=== PATIENT | male | born 1940 | race Caucasian/White ===

== ENCOUNTER → 2017-06-19 | Outpatient (CLI) | payer OTHER ==
[~2017-06-19] MED LIST: ASCO500T16 PO; DVN80125 PO; MULT-506 PO; [UNRECOGNIZED DRUG - OTHER] PO
[2017-06-19 14:03] VITALS: BP 108/66; PULSE 70; TEMP 37.1; O2SAT 96
--- NOTE | 2017-06-19 15:17 | Radiation Oncology Follow-Up ---
Radiation Oncology Follow-Up Date of Visit Jun 19, 2017. Reason For Visit Annual follow-up Radiation Completion Date finished 11-08-2013 Diagnosis (1) Prostate cancer Status: Resolved Onset Date: 04/12/2011 Permanent Comment: Rising PSA, presenting PSA 7.4 Status post ultrasound-guided biopsy 04/12/2011 revealing adenocarcinoma Petra grade 4+4, biopsy stage TII Status post robotic prostatectomy 11/01/2011 Pathologic stage [id number] Rising PSA to 0.18 1 injection of Lupron 30 mg September 2013 Status post completion of salvage radiation 11/08/2013 received 7000 cGy Last Edited By: Liz Head on Jun 12, 2016 14:31 Interim History He is been doing well from urinary standpoint. His AUA today was 3. Last year it was 4. He completed a prostate cancer index composite for clinical practice and gave a score of 0 of 12 and urinary incontinence symptoms. He gave a score of 2 of 12 and urinary irritation symptoms. He gave a score of 0 of 12 and bowel symptoms. He gave a score of 2 of 12 and sexual symptoms. He gave a score of one of 12 and hormonal vitality symptoms. His total was 5 of 60. He had a PSA 12/02/2016. This was less than 0.13. He had questioned the use of testosterone to improve endurance and energy levels. I've asked him to review that question with Dr. Cormier. He is aware that testosterone is avoided in patients who have a history of prostate cancer. Allergies Coded Allergies: Ciprofloxacin (Verified Adverse Reaction, Unknown, DIARRHEA, 10/21/11) Home Medications Scheduled Ascorbic Acid (Ascorbic Acid), 500 MG PO DAILY Multivitamin (Multivitamin), 1 TAB PO DAILY [wobemzyme], 2 TAB PO BID Review of Systems Gastrointestinal: Symptoms: WNL Oral: Symptoms: No Problems Respiratory: Symptoms: WNL Urinary: Symptoms: WNL Skin: Symptoms: No Problems Other Skin Symptoms: " skin is wrinkled " Physical Exam Vital Signs Date Time Temp Pulse Resp B/P (MAP) Pulse Ox O2 Delivery O2 Flow Rate FiO2 06/19/17 14:03 37.1 70 18 108/66 96 Pain: Side: Bilateral Patient Pain Scale: 0 - 10 Initial Pain Intensity: 0.0 General Appearance: no apparent distress Eyes: normal inspection, EOMI ENT: normal ENT inspection, hearing grossly normal Neck: no adenopathy, thyroid normal Respiratory/Chest: lungs clear, no respiratory distress, no accessory muscle use Cardiovascular: regular rate, rhythm, no gallop, no murmur Anal / Rectum: Refused rectal exam. Laboratory Studies Test 06/19/17 14:33 Assessment & Plan Plan: PSA was drawn today. He'll be notified as to the results. Continue regular follow-up with Dr. Cormier. He'll be seeing him in December 2017. We ask him to return to our office in 1 year. He may call if he has any questions or concerns in the interim. Total Time In Follow-Up I spent 20 minutes speaking to the patient and performing examination. I spent 15 minutes reviewing information and complaining this note. Copy To Shaheen Cormier MD, Urology; Chad Jackman D.O.
== END | disposition home or self-care (01) ==
LOC: C.ONC 13:56
PROVIDERS: ATTEND Physician Assistant Medical
DX: Z08 Encounter for follow-up examination after completed treatment for malignant neoplasm (principal); Z92.3 Personal history of irradiation; Z85.46 Personal history of malignant neoplasm of prostate

== ENCOUNTER 2017-11-21 16:28 | Emergency (ER) | payer OTHER ==
[~2017-11-21] VITALS: Ht 167.6 cm; Wt 72.0 kg
[~2017-11-21 16:28] MED LIST changes: -DVN80125 PO
[2017-11-21 16:29] VITALS: TEMP 36.5; Ht 167.6 cm; Wt 72.0 kg
[2017-11-21] MEDS ORDERED: [UNRECOGNIZED DRUG - OTHER] PO (16:42)
--- NOTE | 2017-11-21 17:48 | DIAGNOSTIC IMAGING REPORT ---
L-SPINE MIN 4 VIEWS ROUTINE HISTORY: 76 years-old Male R hip pain acute right-sided hip pain COMPARISON: Pelvis and right hip radiographs of same day TECHNIQUE: 5 views of the lumbar spine FINDINGS: There are 5 lumbar type vertebral segments present. No spondylolysis or spondylolisthesis. Mild intervertebral disc space narrowing noted at the T12-L1, L1-L2 and L5-S1 levels. Multilevel facet arthropathy. No acute fracture or subluxation. Bones appear mildly demineralized. Atherosclerosis of the aorta with suggested aneurysmal dilation. IMPRESSION: 1. No acute fracture or subluxation of the lumbar spine. 2. Atherosclerosis with suggested aneurysmal dilation of the abdominal aorta. 3. Degenerative changes as above. The above report was generated using voice recognition software. It may contain grammatical, syntax or spelling errors. Electronically signed by: Eugene Lunsford M.D. 11/21/2017 5:46 PM Dictated Date/Time: 11/21/2017 5:44 PM
--- NOTE | 2017-11-21 17:49 | DIAGNOSTIC IMAGING REPORT ---
R PELVIS/UNILATERAL HIP 2-3VIEWS HISTORY: 76 years-old Male R hip pain acute right hip pain COMPARISON: Lumbar spine radiographs of same day TECHNIQUE: AP view of the pelvis with 2 views of the right hip FINDINGS: No pelvic ring fracture identified. Degenerative changes are seen within the bilateral SI joints and lower lumbar spine. Mild degenerative changes of the bilateral femoral acetabular joints. There is no acute fracture or subluxation identified. Marginal spurring is noted about the right greater trochanter. IMPRESSION: No acute fracture or subluxation. The above report was generated using voice recognition software. It may contain grammatical, syntax or spelling errors. Electronically signed by: Eugene Lunsford M.D. 11/21/2017 5:48 PM Dictated Date/Time: 11/21/2017 5:46 PM
--- NOTE | 2017-11-21 17:54 | EMERGENCY ROOM VISIT NOTE ---
History First contact with patient: 16:41 Chief Complaint: BACK INJURY Stated Complaint: BACK INJURY History of Present Illness The patient is a 76 year old male who presents to the Emergency Room via private vehicle accompanied by with complaints of "back injury". The patient states that he has had right low back pain near the SI joint for many years. He usually follows with a chiropractor and adjustment is normally all he needs. He states that this past Friday he was seen by the chiropractor but the pain has not improved. It is progressively worsening. He notes that it is worse at night. It is alleviated after bowel movements, and by sitting. It is worse with standing. He notes the pain is a 3/10 now but at times will be at 12 /10. He denies any trauma or injury to the area. He states that there is no radiation, numbness, tingling, weakness, urinary symptoms, incontinence, blood in the stools. He does note a history of troubles with his right hip. He has been taking ibuprofen and trying heat. He notes that ice hurts the area. Review of Systems A complete 10-point Review of Systems was discussed with the patient, with pertinent positives and negatives listed in the History of Present Illness. All remaining Review of Systems questions can be considered negative unless otherwise specified. Past Medical/Surgical History Medical Problems: (1) Prostate cancer Family History Noncontributory. Social History Smoking Status: Current Every Day Smoker Patient lives locally. Current/Historical Medications Scheduled Ascorbic Acid (Ascorbic Acid), 500 MG PO DAILY Multivitamin (Multivitamin), 1 TAB PO DAILY [Wobemzym], 2 TABS PO TID Scheduled PRN Hydrocodone/Acetaminophen 5MG/325MG (Sparks 5MG/325MG), 1-2 TABLET PO Q6 PRN for Pain Physical Exam Vital Signs Date Time Temp Pulse Resp B/P (MAP) Pulse Ox O2 Delivery O2 Flow Rate FiO2 11/21/17 20:50 58 16 157/91 95 Room Air 11/21/17 19:55 61 16 163/92 94 Room Air 11/21/17 18:38 59 16 137/85 96 Room Air 11/21/17 16:29 36.5 70 20 156/92 96 Room Air Physical Exam VITAL SIGNS - Vital signs and nursing notes were reviewed. Stable. Hypertensive. GENERAL -76-year-old male appearing his stated age who is in no acute distress. Communicates well with provider and answers questions appropriately. SKIN - Without rashes. No petechial rashes. HEAD - NC/AT. EYES - Sclera anicteric. ABDOMEN - Abdominal contour normal without pulsations or visible masses. No tenderness, palpable masses, hepatosplenomegaly, or ascites noted. EXTREMITIES - No clubbing or peripheral cyanosis. No pretibial edema present. No reproducible tenderness at the SI joint. +5/5 strength noted in UE/LE bilaterally. Medical Decision & Procedures ER Provider Diagnostic Interpretation: L-SPINE MIN 4 VIEWS ROUTINE HISTORY: 76 years-old Male R hip pain acute right-sided hip pain COMPARISON: Pelvis and right hip radiographs of same day TECHNIQUE: 5 views of the lumbar spine FINDINGS: There are 5 lumbar type vertebral segments present. No spondylolysis or spondylolisthesis. Mild intervertebral disc space narrowing noted at the T12-L1, L1-L2 and L5-S1 levels. Multilevel facet arthropathy. No acute fracture or subluxation. Bones appear mildly demineralized. Atherosclerosis of the aorta with suggested aneurysmal dilation. IMPRESSION: 1. No acute fracture or subluxation of the lumbar spine. 2. Atherosclerosis with suggested aneurysmal dilation of the abdominal aorta. 3. Degenerative changes as above. The above report was generated using voice recognition software. It may contain grammatical, syntax or spelling errors. Electronically signed by: Eugene Lunsford M.D. 11/21/2017 5:46 PM Dictated Date/Time: 11/21/2017 5:44 PM R PELVIS/UNILATERAL HIP 2-3VIEWS HISTORY: 76 years-old Male R hip pain acute right hip pain COMPARISON: Lumbar spine radiographs of same day TECHNIQUE: AP view of the pelvis with 2 views of the right hip FINDINGS: No pelvic ring fracture identified. Degenerative changes are seen within the bilateral SI joints and lower lumbar spine. Mild degenerative changes of the bilateral femoral acetabular joints. There is no acute fracture or subluxation identified. Marginal spurring is noted about the right greater trochanter. IMPRESSION: No acute fracture or subluxation. The above report was generated using voice recognition software. It may contain grammatical, syntax or spelling errors. Electronically signed by: Eugene Lunsford M.D. 11/21/2017 5:48 PM Dictated Date/Time: 11/21/2017 5:46 PM [~ rep ct add3]] ANGIO ABD/PELVIS WITH CONTRAST CLINICAL HISTORY: 76 years-old Male presents with acute right-sided hip pain. Aneurysm seen on comparison lumbar spine radiographs. COMPARISON STUDY: Lumbar spine radiographs of same day TECHNIQUE: Following the IV administration of 116 cc of Optiray 320, CT angiogram of the abdomen and pelvis was performed from the lung bases the proximal femora. Images are reviewed in the axial, sagittal, and coronal planes. 3-D MIPS images are created and assessed. IV contrast was administered without complication. A dose lowering technique was utilized adhering to the principles of ALARA. CT DOSE: 332.73 mGy.cm FINDINGS: CTA: Imaged inferior cardiac chambers are within the upper limits of normal in size. There is fusiform aneurysmal dilation of the infrarenal abdominal aorta which appears bilobed measuring up to 4.7 x 4.8 cm for a craniocaudal length of 8.6 cm. Proximal portion of the aneurysm measures up to 3.5 x 3.6 cm. The right common iliac artery is dilated measuring 1.8 cm. The left common iliac artery is also dilated measuring 1.8 cm. No aortic dissection. There is a focal area of moderate luminal narrowing involving the proximal right common iliac artery nicely seen on image 24 series 300 secondary to extensive atherosclerotic plaquing. The common, external iliac arteries are patent. The visualized common and superficial femoral arteries are also patent. Atherosclerotic plaquing the origin of the renal arteries is noted without high-grade stenosis. Celiac trunk, superior and inferior mesenteric arteries are patent. CT ABDOMEN/PELVIS: Mild dependent subsegmental bibasilar atelectasis. No pneumatosis or pneumoperitoneum identified. The liver, spleen, gallbladder and adrenal glands are within normal limits. Mild to moderate generalized pancreatic atrophy. Nonspecific bilateral perinephric stranding. Low attenuating 1.4 x 1.4 cm lesion of the interpolar right kidney suggests cyst with 2.8 x 2.1 cm lesion of the superior pole right kidney also suggesting cyst. No renal calculi or hydronephrosis identified. The ureters and urinary bladder are within normal limits. No bulky adenopathy identified. There is no bowel obstruction or focal bowel wall thickening identified. Mild sigmoid colon diverticulosis without CT evidence of acute diverticulitis. No ascites or inflammatory changes identified. Soft tissues are unremarkable. No acute fracture or subluxation. Moderate facet arthrosis of the lower lumbar spine with mild degenerative changes of the bilateral hips. IMPRESSION: 1. Bilobed fusiform aneurysmal dilation of the infrarenal abdominal aorta measures up to 4.7 x 4.8 cm. Additionally, there is dilation of the bilateral common iliac arteries measuring up to 1.8 cm with extensive atherosclerotic plaquing. 2. Moderate narrowing involves the proximal aspect of the right common iliac artery secondary to atherosclerotic plaquing. No dissection, proximal vessel occlusion or additional significant luminal narrowing identified. 3. No acute intra-abdominal or intrapelvic abnormality identified. 4. Mild sigmoid colon diverticulosis without diverticulitis. The above report was generated using voice recognition software. It may contain grammatical, syntax or spelling errors. Electronically signed by: Eugene Lunsford M.D. 11/21/2017 7:30 PM Dictated Date/Time: 11/21/2017 7:15 PM Laboratory Results 11/21/17 18:20 Red Blood Count 4.63, Mean Corpuscular Volume 91.6, Mean Corpuscular Hemoglobin 32.4, Mean Corpuscular Hemoglobin Concent 35.4, Mean Platelet Volume 9.4, Neutrophils (%) (Auto) 62.9, Lymphocytes (%) (Auto) 25.1, Monocytes (%) (Auto) 7.7, Eosinophils (%) (Auto) 3.4, Basophils (%) (Auto) 0.7, Neutrophils # (Auto) 5.20, Lymphocytes # (Auto) 2.08, Monocytes # (Auto) 0.64, Eosinophils # (Auto) 0.28, Basophils # (Auto) 0.06 11/21/17 18:20 Test 11/21/17 18:20 11/21/17 18:24 White Blood Count 8.28 K/uL (4.8-10.8) Red Blood Count 4.63 M/uL (4.7-6.1) Hemoglobin 15.0 g/dL (14.0-18.0) Hematocrit 42.4 % (42-52) Mean Corpuscular Volume 91.6 fL (80-100) Mean Corpuscular Hemoglobin 32.4 pg (25-34) Mean Corpuscular Hemoglobin Concent 35.4 g/dl (32-36) Platelet Count 245 K/uL (130-400) Mean Platelet Volume 9.4 fL (7.4-10.4) Neutrophils (%) (Auto) 62.9 % Lymphocytes (%) (Auto) 25.1 % Monocytes (%) (Auto) 7.7 % Eosinophils (%) (Auto) 3.4 % Basophils (%) (Auto) 0.7 % Neutrophils # (Auto) 5.20 K/uL (1.4-6.5) Lymphocytes # (Auto) 2.08 K/uL (1.2-3.4) Monocytes # (Auto) 0.64 K/uL (0.11-0.59) Eosinophils # (Auto) 0.28 K/uL (0-0.5) Basophils # (Auto) 0.06 K/uL (0-0.2) RDW Standard Deviation 44.0 fL (36.4-46.3) RDW Coefficient of Variation 13.2 % (11.5-14.5) Immature Granulocyte % (Auto) 0.2 % Immature Granulocyte # (Auto) 0.02 K/uL (0.00-0.02) Prothrombin Time 10.7 SECONDS (9.0-12.0) Prothromb Time International Ratio 1.0 (0.9-1.1) Activated Partial Thromboplast Time 26.6 SECONDS (21.0-31.0) Partial Thromboplastin Ratio 1.0 Est Creatinine Clear Calc Drug Dose 65.9 ml/min Estimated GFR () 97.6 Estimated GFR (Non- 84.2 BUN/Creatinine Ratio 21.1 (10-20) Calcium Level 9.3 mg/dl (8.5-10.1) Total Bilirubin 0.6 mg/dl (0.2-1) Aspartate Amino Transf (AST/SGOT) 14 U/L (15-37) Alanine Aminotransferase (ALT/SGPT) 18 U/L (12-78) Alkaline Phosphatase 79 U/L (45-117) Total Protein 7.9 gm/dl (6.4-8.2) Albumin 4.2 gm/dl (3.4-5.0) Globulin 3.7 gm/dl (2.5-4.0) Albumin/Globulin Ratio 1.1 (0.9-2) Bedside Hemoglobin 14.3 g/dl (14.0-18.0) Bedside Hematocrit 42 % (42-52) Bedside Sodium 142 mEq/L (135-144) Bedside Potassium 4.2 mEq/L (3.3-5.0) Bedside Chloride 103 mEq/L (101-112) Bedside Total CO2 27 mEq/l (24-31) Anion Gap 17.0 mmol/L (16-25) Bedside Blood Urea Nitrogen 18 mg/dl (7-18) Bedside Creatinine 0.9 mg/dl (0.6-1.3) Bedside Glucose (other) 85 mg/dl (70-99) Bedside Ionized Calcium (Lucy) 1.20 mmol/l (1.12-1.32) Medications Administered Medications (Trade) Dose Ordered Sig/Won Route Start Time Stop Time Status Last Admin Dose Admin Acetaminophen/ Hydrocodone Bitart (Sparks 5/325mg Home Pack) 1 homepack UD STAT PO 11/21/17 20:15 11/21/17 20:16 DC 11/21/17 20:15 1 HOMEPACK Medical Decision Patient was seen and evaluated as above. He presents to us today with low back pain. He is nontoxic on exam. He is not hypotensive. There is no pulsatile abdominal mass. Plain films were obtained. There is concern for potential aneurysmal finding secondary to the plaque formation seen on radiograph. CTA was obtained. There is an aneurysm. I discussed the case with the attending physician, and subsequently the on-call vascular surgeon, Dr. Rendon at 7:50 PM. He felt that the pain the patient is experiencing does not appear to be from the aneurysm. He'll be happy to see the patient in the outpatient setting. I provided the patient his contact information. It is likely the patient is experiencing pain in his SI joint from musculoskeletal etiologies, and that coincidentally we happened to find the aneurysm rather than his pain be caused by the aneurysm. X-ray regarding the hip and back are as above as well. There is no fracture or dislocation. There is no concern leukocytosis or concerning anemia. Coags normal. Metabolic panel reveals no evidence of kidney or liver failure. He'll be given Sparks for pain for the SI joint. PDMP clear. He is to call his family doctor first thing Friday as well as a vascular surgeon to schedule follow up. He is to return with worsening. He is felt stable for outpatient management. He was educated upon management, educated upon worrisome symptoms which to return, had questions answered prior to discharge, and was discharged home in good condition. He is to follow with family doctor regarding his elevated blood pressure today here as well. Medication list reviewed. In evaluation and treatment of this patient the following differential diagnoses were entertained: Fracture, dislocation, AAA, among others. Impression Primary Impression: SI (sacroiliac) joint inflammation Additional Impression: AAA (abdominal aortic aneurysm) without rupture Departure Information Dispostion Home / Self-Care Condition GOOD Prescriptions Hydrocodone/Acetaminophen 5MG/325MG (Sparks 5MG/325MG) Tab 1-2 TABLET PO Q6 Y for Pain, #15 TAB For Initial Treatment Prov: Enzo Martinez PA-C 11/21/17 Referrals Chad Jackman D.O. (PCP) Renato Rendon M.D. Patient Instructions [facility] Additional Instructions You have been treated in the Emergency Department for Back Pain. You have been prescribed NORCO to be used for pain control. This is a narcotic medication. You cannot drive or consume alcohol while on this medicine. This medicine should only be used for pain that cannot be controlled with over-the- counter pain medicines. For pain control, you can use the following [id number] medicines: - Regular strength (325mg/tab) Tylenol (acetaminophen) 2 tabs every 4-6 hours as needed. Do not exceed 12 tablets in a 24 hour period. Avoid taking more than 3 grams (3000 mg) of Tylenol per day. This includes any other sources of acetaminophen you may take on a regular basis. PLEASE DO NOT TAKE THE NORCO WITH THE TYLENOL - Regular strength (200 mg/tab) Advil (ibuprofen) 1-2 tabs every 4-6 hours as needed. Do not exceed a dose of 3200 mg per day. If this is an acute injury, ice can be applied to the area of pain for the first 3 days to help decrease pain and inflammation. After the first 3 days, a heating pad can be used over the area for continued soothing relief. You should schedule a follow-up appointment in 2-3 days with your Primary Care Provider for further evaluation and treatment of your back pain. Please follow up with Dr. Rendon for the abdominal aneurysm. Please return with ANY worsening symptoms Return to the Emergency Department if your current symptoms worsen despite treatment course outlined above, or if you develop any of the following symptoms : intractable pain despite aforementioned treatment course, loss of control of your bowel or bladder, numbness or tingling in your groin, or development of a fever. Problem Qualifiers
--- NOTE | 2017-11-21 18:03 | EMERGENCY ROOM VISIT NOTE ---
ED Visit Note First contact with patient: 16:41 This Patient was discussed with the physician Saw Tailer, Enzo Martinez PA-C. The pertinent historical and physical exam findings were confirmed. I agree with the studies ordered and with the interpretations of these studies. I agree with the disposition and care plan.
[2017-11-21] MEDS ORDERED: OPTIRAY 320 IV PRN (18:15)
[2017-11-21 18:32] LABS: BASO % 0.7 %; BASO ABS # 0.06 K/uL (0-0.2); EOS % 3.4 %; EOS ABS # 0.28 K/uL (0-0.5); HEMATOCRIT 42.4 % (42-52); IG# 0.02 K/uL (0.00-0.02); LYMPH % 25.1 %; LYMPH ABS # 2.08 K/uL (1.2-3.4); MEAN CELL VOLUME 91.6 fL (80-100); MEAN CORPUSCULAR HEMOGLOBIN 32.4 pg (25-34); MEAN CORPUSCULAR HGB CONC 35.4 g/dl (32-36); MEAN PLATELET VOLUME 9.4 fL (7.4-10.4); MONO % 7.7 %; MONO ABS # 0.64 K/uL (0.11-0.59); NEUT % 62.9 %; PLATELET COUNT 245 K/uL (130-400); RED CELL DISTRIBUTION WIDTH CV 13.2 % (11.5-14.5); WHITE BLOOD COUNT 8.28 K/uL (4.8-10.8)
[2017-11-21 18:38] LABS: ISTAT CREATININE 0.9 mg/dl (0.6-1.3); ISTAT IONIZED CALCIUM 1.2 mmol/l (1.12-1.32); ISTAT POTASSIUM 4.2 mEq/L (3.3-5.0)
[2017-11-21 18:41] LABS: PTT PATIENT 26.6 SECONDS (21.0-31.0)
[2017-11-21 18:48] LABS: ALBUMIN 4.2 gm/dl (3.4-5.0); CALCIUM 9.3 mg/dl (8.5-10.1); CREATININE 0.86 mg/dl (0.60-1.40); POTASSIUM 4.2 mmol/L (3.5-5.1)
[2017-11-21 18:51] LABS: TOTAL PROTEIN 7.9 gm/dl (6.4-8.2)
--- NOTE | 2017-11-21 19:31 | DIAGNOSTIC IMAGING REPORT ---
ANGIO ABD/PELVIS WITH CONTRAST CLINICAL HISTORY: 76 years-old Male presents with acute right-sided hip pain. Aneurysm seen on comparison lumbar spine radiographs. COMPARISON STUDY: Lumbar spine radiographs of same day TECHNIQUE: Following the IV administration of 116 cc of Optiray 320, CT angiogram of the abdomen and pelvis was performed from the lung bases the proximal femora. Images are reviewed in the axial, sagittal, and coronal planes. 3-D MIPS images are created and assessed. IV contrast was administered without complication. A dose lowering technique was utilized adhering to the principles of ALARA. CT DOSE: 332.73 mGy.cm FINDINGS: CTA: Imaged inferior cardiac chambers are within the upper limits of normal in size. There is fusiform aneurysmal dilation of the infrarenal abdominal aorta which appears bilobed measuring up to 4.7 x 4.8 cm for a craniocaudal length of 8.6 cm. Proximal portion of the aneurysm measures up to 3.5 x 3.6 cm. The right common iliac artery is dilated measuring 1.8 cm. The left common iliac artery is also dilated measuring 1.8 cm. No aortic dissection. There is a focal area of moderate luminal narrowing involving the proximal right common iliac artery nicely seen on image 24 series 300 secondary to extensive atherosclerotic plaquing. The common, external iliac arteries are patent. The visualized common and superficial femoral arteries are also patent. Atherosclerotic plaquing the origin of the renal arteries is noted without high-grade stenosis. Celiac trunk, superior and inferior mesenteric arteries are patent. CT ABDOMEN/PELVIS: Mild dependent subsegmental bibasilar atelectasis. No pneumatosis or pneumoperitoneum identified. The liver, spleen, gallbladder and adrenal glands are within normal limits. Mild to moderate generalized pancreatic atrophy. Nonspecific bilateral perinephric stranding. Low attenuating 1.4 x 1.4 cm lesion of the interpolar right kidney suggests cyst with 2.8 x 2.1 cm lesion of the superior pole right kidney also suggesting cyst. No renal calculi or hydronephrosis identified. The ureters and urinary bladder are within normal limits. No bulky adenopathy identified. There is no bowel obstruction or focal bowel wall thickening identified. Mild sigmoid colon diverticulosis without CT evidence of acute diverticulitis. No ascites or inflammatory changes identified. Soft tissues are unremarkable. No acute fracture or subluxation. Moderate facet arthrosis of the lower lumbar spine with mild degenerative changes of the bilateral hips. IMPRESSION: 1. Bilobed fusiform aneurysmal dilation of the infrarenal abdominal aorta measures up to 4.7 x 4.8 cm. Additionally, there is dilation of the bilateral common iliac arteries measuring up to 1.8 cm with extensive atherosclerotic plaquing. 2. Moderate narrowing involves the proximal aspect of the right common iliac artery secondary to atherosclerotic plaquing. No dissection, proximal vessel occlusion or additional significant luminal narrowing identified. 3. No acute intra-abdominal or intrapelvic abnormality identified. 4. Mild sigmoid colon diverticulosis without diverticulitis. The above report was generated using voice recognition software. It may contain grammatical, syntax or spelling errors. Electronically signed by: Eugene Lunsford M.D. 11/21/2017 7:30 PM Dictated Date/Time: 11/21/2017 7:15 PM
[2017-11-21] MEDS ORDERED: NORCO 5/325MG HOME PACK PO STA (20:15)
[2017-11-21] MEDS ORDERED: HYDR-5688 PO (20:23)
[2017-11-21 20:50] VITALS: BP 157/91; PULSE 58; O2SAT 95
== END 2017-11-21 20:52 | disposition home or self-care (01) ==
LOC: C.EDB 16:29 → C.EDD 20:52
DX: M46.1 Sacroiliitis, not elsewhere classified (principal); I71.4 Abdominal aortic aneurysm, without rupture; C61 Malignant neoplasm of prostate; F17.200 Nicotine dependence, unspecified, uncomplicated

== ENCOUNTER → 2018-06-23 | Outpatient (CLI) | payer OTHER ==
[~2018-06-23] MED LIST changes: +ATOR10TA82 PO; +[UNRECOGNIZED DRUG - OTHER] PO; -[UNRECOGNIZED DRUG - OTHER] PO
[2018-06-23 13:26] VITALS: BP 103/66; PULSE 67; TEMP 36.8; O2SAT 94
--- NOTE | 2018-06-23 14:04 | Radiation Oncology Follow-Up ---
Radiation Oncology Follow-Up Date of Visit Jun 23, 2018. 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 He denies any changes in urinary habits. He completed an AUA score sheet and gave a score of 3. He completed and expanded prostate cancer index composite for clinical practice and gave a score of 0 of 12 and urinary incontinence symptoms. He gave a score of 1 of 12 and urinary irritation symptoms. He gave a score of 0 of 12 in bowel symptoms. He gave a score of 3 of 12 in sexual symptoms. He gives score of 0 12 and hormonal vitality symptoms. His total was 4 of 60. He had a PSA on March 17, 2018. And that was less than 0.13. He underwent an abdominal aortic aneurysm repair in December. He has had complete recovery. He feels he may have a small hernia. This is been evaluated by the surgeon. Allergies Coded Allergies: Ciprofloxacin (Verified Adverse Reaction, Intermediate, GI UPSET-UNABLE TO TOLERATE LACTOSE PRODUCTS FOR 2 MONTHS., 11/21/17) Home Medications Scheduled Ascorbic Acid (Ascorbic Acid), 500 MG PO DAILY Atorvastatin (Lipitor), 1 TAB PO DAILY Multivitamin (Multivitamin), 1 TAB PO DAILY [Wobemzym], 2 TABS PO TID Review of Systems Gastrointestinal: Symptoms: WNL Oral: Symptoms: No Problems Respiratory: Symptoms: WNL Urinary: Symptoms: WNL Skin: Symptoms: No Problems Other Skin Symptoms: " skin is wrinkled " Physical Exam Vital Signs Date Time Temp Pulse Resp B/P (MAP) Pulse Ox O2 Delivery O2 Flow Rate FiO2 06/23/18 13:26 36.8 67 20 103/66 94 Fatigue: None General Appearance: no apparent distress Eyes: normal inspection, EOMI ENT: normal ENT inspection, hearing grossly normal Respiratory/Chest: no respiratory distress, no accessory muscle use, + decreased breath sounds Cardiovascular: regular rate, rhythm, no gallop, no murmur Abdomen: non tender, soft Anal / Rectum: Patient refused rectal exam. Extremities: no pedal edema Neurologic/Psychiatric: no motor/sensory deficits, alert, normal mood/affect Skin: warm/dry Pain Management Patient Reports Pain: No Side: Bilateral Patient Preferred Pain Scale: 0 - 10 Initial Pain Intensity: 0.0 Pain Management Plan He denies pain therefore requires no pain management. Laboratory Laboratory Results: were reviewed Laboratory Comments: Reviewed in the interim history. Pathology Pathology Results: not applicable Imaging Imaging Studies: not applicable Assessment & Plan Plan: We discussed his PSA values. These have been excellent. He is doing well from a urinary standpoint. It will be 5 years since the completion of radiation in November. We discussed follow-up now will continue through urology. He was not given a follow-up appointment. He will have a recheck PSA in March. He may call our office if he has any questions or concerns. Total Time In Follow-Up I spent 20 minutes speaking to the patient in performing examination. I spent 15 minutes reviewing information and completing this note. AK Copy To Shaheen Cormier MD, Urology; Chad Jackman D.O.
== END | disposition home or self-care (01) ==
LOC: C.ONC 12:50
PROVIDERS: ATTEND Physician Assistant Medical
DX: Z08 Encounter for follow-up examination after completed treatment for malignant neoplasm (principal); Z92.3 Personal history of irradiation; Z85.46 Personal history of malignant neoplasm of prostate